=== PATIENT | female | born 1980 | race Caucasian/White ===

== ENCOUNTER 2024-08-29 16:33 | Emergency (ER) | payer MEDICARE, MEDICAID, SELFPAY ==
--- NOTE | 2024-08-29 16:36 | XR_ITS ---
Examination: AP chest single view Technique one AP portable upright chest single view Standing time: August 29, 2024 1709 hours INDICATIONS: Chest pain shortness of breath in 2 days ago FINDINGS: Early pneumonia left base Normal heart size Right lung clear IMPRESSION: Early pneumonia left base, obscuring detail lateral left hemidiaphragm
--- NOTE | 2024-08-29 16:36 | EKG_ITS ---
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
--- NOTE | 2024-08-29 16:37 | PD.EDADULT ---
ED General RME/HPI General Chief complaint: Chest Pain Stated complaint: CHEST PAIN Time Seen by Provider: 08/29/24 16:36 Arrival date/time: 08/29/24 16:33 CC: Chest pain, nausea, diarrhea HPI ongoing for the past 4 days. Patient called 911 secondary to chest pain EMS reports stable vital signs her chest pain was a 10 out of 10 upon arrival after 2 baby aspirin oral and Nitropaste the patient's pain is decreased to a 5. Patient is awake alert oriented. Patient states she was started on Flagyl today for a STD , however the patient states she was never had a pelvic examination and/or testing. Patient's medications include the following Gabapentin doxepin tramazoline bupropion Suboxone and Flagyl. Related Data Home Medications ?Medication ?Instructions ?Recorded ?Confirmed aripiprazole 10 mg tablet 10 mg PO .ARNEL 08/29/24 08/29/24 buprenorphine 12 mg-naloxone 3 mg 1 film buccal Q24H 08/29/24 08/29/24 sublingual film bupropion HCl 200 mg tablet,12 hr 200 mg PO Q12H 08/29/24 08/29/24 sustained-release doxepin 25 mg capsule 25 mg PO .at bed 08/29/24 08/29/24 duloxetine 30 mg capsule,delayed 30 mg PO DAILY 08/29/24 08/29/24 release gabapentin 400 mg capsule 400 mg PO Q12H 08/29/24 08/29/24 metronidazole 500 mg tablet 500 mg PO BID 08/29/24 08/29/24 tizanidine 4 mg tablet 4 mg PO .at bed 08/29/24 08/29/24 Previous Rx's ?Medication ?Instructions ?Recorded azithromycin 500 mg tablet See Rx Instructions PO .COMPLEX #3 08/29/24 (Zithromax TRI-RANCHO) tabs ondansetron 4 mg disintegrating 4 mg PO Q8H #10 tabs 08/29/24 tablet Allergies Allergy/AdvReac Type Severity Reaction Status Date / Time adhesive tape Allergy Verified 08/29/24 18:41 Review of Systems Review of Systems Narrative Review of Systems: GEN: No fever, no chills, no weight loss EYES: No discharge, no visual changes, no pain HEENT: No ear pain, no congestion, no sore throat PULM: No shortness of breath, no cough, no congestion CV: + chest pain, no dyspnea on exertion, no palpitations GI: + nausea, no vomiting, + diarrhea, no pain, no constipation : No frequency, no urgency, no dysuria MUSC/SKEL: No joint pain, no back pain SKIN: No rash PSYCH: No hallucinations, no depression HEME/LYMPH: No easy bleeding or bruising tendencies NEURO: No weakness, no headache Past Medical History Past Medical History RESPIRATORY: Positive Chronic Obstructive Pulmonary Disease (COPD) ENDOCRINE: Positive Hypoglycemia HEMATOLOGIC: Positive Anemia Family History FAMILY HISTORY: Positive Family Cancer (PT'S AUNT BREAST CANCER) Surgical History SURGICAL: Positive Tubal Ligation Social History SMOKING STATUS: Former smoker ED Exam Narrative Physical exam: [General: Obese, anxious, but not in any acute distress Head normocephalic HEENT: Eyes pupils are PERRLA EOMs are intact mouth pink moist membranes uvula is midline swallow symmetrical all other subsystems of HEENT are within acceptable limits Neck is supple nontender Chest equal chest rise nontender to palpation Respiratory: Clear to auscultation no wheezes crackles or rubs CV: Rate rhythm is regular no murmurs rubs or clicks Abdomen is distended secondary to body habitus soft nontender no masses positive bowel sounds all 4 quadrants Back: No CVA tenderness no spinous process tenderness from cervical spine thoracic and lumbar spine Skin: Intact no petechiae rash induration ulceration or crepitus Extremities: Moving all extremity against resistance cap refill less than 2 seconds neurosensory intact. Nonpitting edema to the dorsum of both feet Neuro: Awake alert oriented x3 Glascow coma 15 no focal deficits] Course Quality Measures none Orders Category Date Time Status EKG (ED ONLY) *Do not use* NOW Care 08/29/24 16:36 Completed EKG (ED ONLY) *Do not use* NOW Care 08/29/24 16:40 Completed EKG (ED Only) Stat Exams 08/29/24 16:36 Draft EKG (ED Only) Stat Exams 08/29/24 16:40 Stop Req XR chest 1V Stat Exams 08/29/24 16:36 Completed B-Type Natriuretic Peptide Stat Lab 08/29/24 17:23 Completed CBC Stat Lab 08/29/24 17:23 Completed Comprehensive Metabolic Panel Stat Lab 08/29/24 17:23 Completed Drug Screen,Urine Stat Lab 08/29/24 17:52 Completed LDH (Lactate Dehydrogenase) Stat Lab 08/29/24 17:23 Completed Magnesium Stat Lab 08/29/24 17:23 Completed Partial Thromboplastin Time Stat Lab 08/29/24 17:23 Completed Prothrombin Time with INR Stat Lab 08/29/24 17:23 Completed Troponin I Stat Lab 08/29/24 17:23 Completed Urinalysis Stat Lab 08/29/24 17:52 Completed Ketorolac Inj [Toradol Inj] Med 08/29/24 18:51 Discontinued 15 mg IVP X1 ONE cefTRIAXone/D5w 1gm IV premix [Rocephin/D5w 1gm IV Med 08/29/24 18:51 Discontinued premix] 1 gm in 50 ml IV X1 Vital Signs Vital signs: Vital Signs Temperature 98.2 F 08/29/24 16:47 Pulse Rate 74 08/29/24 16:47 Respiratory Rate 18 08/29/24 16:47 Blood Pressure 136/79 H 08/29/24 16:47 Pulse Oximetry (%) 96 08/29/24 16:47 Oxygen Delivery Method Room Air 08/29/24 16:47 Discharge Plan Plan Patient Disposition: HOME (Self Care) Patient condition on transfer: Stable Prescriptions/Referrals Prescriptions/Med Rec: New azithromycin [Zithromax TRI-RANCHO] 500 mg tablet See Rx Instructions .ROUTE .COMPLEX Qty: 3 0RF Rx Instructions: For 500 mg dose pack: take 500 mg once daily for 3 days ondansetron 4 mg tablet,disintegrating 4 mg PO Q8H Qty: 10 0RF No Action metronidazole 500 mg tablet 500 mg PO BID buprenorphine-naloxone 12-3 mg film 1 film BUCCAL Q24H Patient Comments: PLACE 1 STRIP UNDER THE TONGUE AND ALLOW TO DISSOLVE ONCE DAILY aripiprazole 10 mg tablet 10 mg PO .ARNEL Patient Comments: TAKE 1 TABLET BY MOUTH IN THE MORNING duloxetine 30 mg capsule,delayed release(DR/EC) 30 mg PO DAILY Patient Comments: TAKE 1 CAPSULE BY MOUTH IN THE MORNING gabapentin 400 mg capsule 400 mg PO Q12H Patient Comments: TAKE 1 CAPSULE BY MOUTH TWICE DAILY doxepin 25 mg capsule 25 mg PO .at bed Patient Comments: TAKE 1 CAPSULE BY MOUTH EVERY DAY AT BEDTIME bupropion HCl 200 mg tablet sustained-release 12 hr 200 mg PO Q12H Patient Comments: TAKE 1 TABLET BY MOUTH TWICE DAILY tizanidine 4 mg tablet 4 mg PO .at bed Patient Comments: TAKE 1 TABLET BY MOUTH AT BEDTIME NEEDED Referrals: No Primary/Family,Physician [Primary Care Provider] - In 1 week Problem List Clinical Impression: Chest pain, Pneumonia Patient/Caregiver Discharge Instructions Education Materials: ED Chest Pain, Noncardiac, ED Pneumonia (Adult) Additional Instructions: You have a very mild pneumonia take the antibiotics prescribed in addition to the antibiotics you are already taken follow-up with your primary care doctor if there is worsening of symptoms return to the primary care doctor Print Language: Tunisian Stand Alone Forms: [employer] Award Info., Work/School Release, Patient Portal Info Letter PA/CHARMAINE Supervising Physician TULIO/CHARMAINE Supervising Physician: Sujit Mccord ENP MDM Patient Acuity Low Acuity (complete MDM as needed) Clinical Information Provided by: patient and EMS Medical Records reviewed [facility] (Reviewed prior ED records from 08/18/24. Patient was seen for Encounter for monitoring Suboxone maintenance therapy.) and EMS Meds/Rx considered, not ordered describe: None EKG EKG Interpretation(s): EKG performed at 1658 shows a ventricular rate of 6 5 IL interval 183 QRS of 90 QTc of 428 this is sinus rhythm. Labs Lab(s) Interpretation(s): CBC shows no acute leukocytosis anemia thrombocytopenia Coags within acceptable limits CMP shows a chloride of 109 gap of 5 BUN of 8 ~bili of 0.2 no transaminitis no T. bili elevation Troponin is negative LDH is negative BNP is negative urine is negative for acute UTI. Imaging Imaging Interpretation(s): Chest x-ray is interpreted by the radiologist as potential base pneumonia. Note the patient has no cough, but continues to have chest pain. With a negative troponin. Medication Administration(s) Medication Administration History Discontinued Medications Ceftriaxone Sodium/Dextrose (Rocephin/D5w 1gm Iv Premix) 1 gm in 50 mls @ 100 mls/hr IV X1 ONE Stop: 08/29/24 19:20 Last Infusion: 08/29/24 20:00 Dose: Infused Documented By: Admin: 08/29/24 19:17 Dose: 100 mls/hr Documented By: SF Ketorolac Tromethamine (Ketorolac Inj 30 Mg/Ml Vial) 15 mg IVP X1 ONE Stop: 08/29/24 18:52 Last Admin: 08/29/24 19:18 Dose: 15 mg Documented By: SF See above if any
--- NOTE | 2024-08-29 16:40 | EKG_ITS ---
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
[2024-08-29 16:47] VITALS: BP 136/79; PULSE 74; RESP 18; TEMP 36.8; O2SAT 96; BMI 30.4
[2024-08-29 17:33] LABS: Basophils # (Auto) 0.1 Thou/mm3 (0.0-0.2); Basophils % (Auto) 1 % (0-2.5); Eosinophils # (Auto) 0.1 Thou/mm3 (0.0-0.5); Eosinophils % (Auto) 2 % (0-10); Hematocrit 36.5 % (36.0-46.0); Hemoglobin 12.1 g/dL (12.0-16.0); Immature Granulocytes % (Auto) 0 % (0-0); Immature Granulocytes Auto 0.02 Thou/mm3 (0.00-0.00); Lymphocytes # (Auto) 2.2 Thou/mm3 (1.0-4.8); Lymphocytes % (Auto) 28 % (10-50); Mean Corpuscular HGB Conc 33.2 g/dl (31.0-37.0); Mean Corpuscular Hemoglobin 30.3 pg (25.0-35.0); Mean Corpuscular Volume 91 fL (80-100); Monocytes # (Auto) 0.7 Thou/mm3 (0.0-0.8); Monocytes % (Auto) 9 % (0-12); Neutrophils # (Auto) 4.7 Thou/mm3 (1.8-7.7); Neutrophils % (Auto) 60 % (37-80); Nucleated Red Blood Cell % 0 /100 WBC (0); Platelet Count 253 Thou/mm3 (140-440); RDW Standard Deviation 41.5 fL (36.4-46.3); White Blood Count 7.8 Thou/mm3 (3.6-11.0)
[2024-08-29 17:55] LABS: B-Type Natriuretic Peptide 45 pg/mL (0-100); INR 0.9 (0.9-1.3); Partial Thromboplastin Time 27.6 Seconds (22.0-36.0); Prothrombin Time 10.3 Seconds (9.0-12.2)
[2024-08-29 17:57] LABS: Alanine Aminotransferase 12 U/L (10-49); Albumin, Serum 3.9 gm/dL (3.5-5.0); Albumin/Globulin Ratio 1.7 (1.2-2.2); Alkaline Phosphatase 84 U/L (46-116); Anion Gap 5 (7-16); Aspartate Amino Transferase 24 U/L (0-34); BUN/Creatinine Ratio 8 Ratio (12-20); Bilirubin,Total 0.2 mg/dL (0.3-1.2); Blood Urea Nitrogen 8 mg/dL (9-23); Calcium 8.8 mg/dL (8.3-10.6); Calcium (Corrected) 8.9 mg/dL (8.5-10.1); Carbon Dioxide 28.5 mMol/L (20.0-31.0); Chloride 109 mMol/L (98-107); Estimated Creatinine Clearance 84.6 mL/min (>60); Globulin 2.3 gm/dL (2.3-3.5); Glucose 105 mg/dL (74-106); LDH (Lactate Dehydrogenase) 204 U/L (120-246); Magnesium 1.8 mg/dL (1.6-2.6); Osmolality,Calculated 281 (275-295); Potassium 3.7 mMol/L (3.4-5.1); Sodium 142 mMol/L (136-145); Total Protein 6.2 gm/dL (5.7-8.2); Troponin I < 0.002 ng/mL (0.0-0.045); eGFR > 60 See Note
[2024-08-29 18:09] LABS: Collection Type, Urine Clean Catch
[2024-08-29 18:10] VITALS: BP 108/66; PULSE 72; RESP 16; TEMP 36.7; O2SAT 96
[2024-08-29 18:19] LABS: Bilirubin,Urine Negative (Negative); Blood,Urine Negative (Negative); Clarity,Urine Clear (Clear/Hazy); Color,Urine Yellow (Lt Yel-Yel); Glucose, Urine Negative (Negative); Ketones,Urine Negative (Negative); Leukocyte Esterase,Urine Positive (Negative); Nitrite,Urine Negative (Negative); Protein,Urine Trace (Neg - Trace); RBC,Urine 22 /hpf (0-3); Specific Gravity,Urine 1.024 (1.001-1.035); Squamous Epithelial Cell,Urine 3 /hpf (0-5); WBC,Urine 30 /hpf (0-5)
[2024-08-29] MEDS: cefTRIAXone/D5w 1gm IV premix 1 GM/50 ML BAG IV (19:17)
[2024-08-29] MEDS: KETOROLAC INJ 30 MG/ML VIAL 15 MG IVP (19:18)
[2024-08-29 19:39] LABS: Amphetamine/Methamp Scrn,U Negative (Negative); Barbiturate Screen,Urine Negative (Negative); Benzodiazepines Screen,Urine Negative (Negative); Benzoylecgonine Screen, Ur Negative (Negative); Fentanyl Screen,Urine Negative (Negative); Opiate Screen,Urine Negative (Negative); THC Screen,Urine Negative (Negative)
--- NOTE | 2024-08-30 08:30 | PC.NURSE ---
PHILIP NOTED AT [facility]ES [facility]. PER NON LINEAR EDITOR CHARGE JOHNNA. STATES HE ATTEMPTED TO CALL PT WITH NO ANSWER. I CALLED AGAIN WITH NO ANSWER. MESSAGE LEFT AT THIS TIME.
== END 2024-08-29 20:28 | disposition home or self-care (01) ==
PROVIDERS: Registered Nurse General Practice; Emergency Provider Emergency Medicine
DX: J44.0 Chronic obstructive pulmonary disease with (acute) lower respiratory infection (principal); J18.9 Pneumonia, unspecified organism; R94.31 Abnormal electrocardiogram [ECG] [EKG]; Z87.891 Personal history of nicotine dependence
CPT/HCPCS: 36415; 71045; 80053; 80307; 81001; 83615; 83735; 83880; 84484; 85025; 85610; 85730; 93005; 96365; 96375; 99284; J0696; J1885

== ENCOUNTER 2025-02-15 09:39 | Emergency (ER) | payer MEDICARE, MEDICAID, SELFPAY ==
[2025-02-15 10:02] VITALS: BP 110/77; PULSE 99; RESP 19; TEMP 36.5; O2SAT 99; BMI 29.5
--- NOTE | 2025-02-15 10:08 | EKG_ITS ---
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
--- NOTE | 2025-02-15 10:08 | XR_ITS ---
EXAMINATION: PA lateral chest 2 views TECHNIQUE: Upright PA and lateral chest 2 views Date and time: February 15, 2025, 11:49 a.m., comparison August 29, 2024 INDICATIONS: Vomiting diarrhea chest pain beginning 3 days ago. FINDINGS: Normal heart size Lungs are clear. Osseous structures are intact IMPRESSION: No active disease
--- NOTE | 2025-02-15 10:08 | PD.EDRME ---
Rapid Medical Screening Exam RME Arrival date/time: 02/15/25 09:39 44-year-old female presents to the emergency room today for complaints of generalized bodyaches, vomiting, headache, chest pain ongoing for the last 2 to 3 days Chief Complaint: Flu Like Symptoms Vital signs: Vital Signs Temperature 97.7 F 02/15/25 10:02 Pulse Rate 99 02/15/25 10:02 Respiratory Rate 19 02/15/25 10:02 Blood Pressure 110/77 02/15/25 10:02 Pulse Oximetry (%) 99 02/15/25 10:02 Oxygen Delivery Method Room Air 02/15/25 10:02
[2025-02-15 10:32] LABS: Basophils # (Auto) 0.2 Thou/mm3 (0.0-0.2); Basophils % (Auto) 1 % (0-2.5); Eosinophils # (Auto) 0.1 Thou/mm3 (0.0-0.5); Eosinophils % (Auto) 0 % (0-10); Hematocrit 46.7 % (36.0-46.0); Hemoglobin 16.4 g/dL (12.0-16.0); Immature Granulocytes Auto 0.05 Thou/mm3 (0.00-0.00); Lymphocytes # (Auto) 3.3 Thou/mm3 (1.0-4.8); Lymphocytes % (Auto) 24 % (10-50); Mean Corpuscular HGB Conc 35.1 g/dl (31.0-37.0); Mean Corpuscular Hemoglobin 30.3 pg (25.0-35.0); Mean Corpuscular Volume 86 fL (80-100); Monocytes # (Auto) 0.7 Thou/mm3 (0.0-0.8); Monocytes % (Auto) 5 % (0-12); Neutrophils # (Auto) 9.7 Thou/mm3 (1.8-7.7); Neutrophils % (Auto) 69 % (37-80); Nucleated Red Blood Cell # 0.00 Thou/mm3 (0.00-0.00); Nucleated Red Blood Cell % 0 /100 WBC (0); Platelet Count 343 Thou/mm3 (140-440); RDW Standard Deviation 38.5 fL (36.4-46.3); Red Blood Count 5.42 Miln/mm3 (4.00-5.20); White Blood Count 13.9 Thou/mm3 (3.6-11.0)
[2025-02-15 10:37] LABS: Collection Type, Urine Clean Catch
[2025-02-15 10:40] LABS: HCG Qualitative,Urine Negative
[2025-02-15 10:43] LABS: Bilirubin,Urine Negative (Negative); Blood,Urine 2+ (Negative); Color,Urine Yellow (Lt Yel-Yel); Culture Indicated,Urine Not Indicated; Glucose, Urine Negative (Negative); Hyaline Casts,Urine < 1 /hpf (0-1); Ketones,Urine Negative (Negative); Leukocyte Esterase,Urine Positive (Negative); Nitrite,Urine Negative (Negative); PH,Urine 6.0 (5.0-7.0); Protein,Urine Trace (Neg - Trace); RBC,Urine 23 /hpf (0-3); Specific Gravity,Urine 1.028 (1.001-1.035); Squamous Epithelial Cell,Urine 13 /hpf (0-5); Urobilinogen,Urine 2.0 mg/dL (0.0-1.0); WBC,Urine 3 /hpf (0-5)
[2025-02-15 10:54] LABS: Amphetamine/Methamp Scrn,U Positive (Negative); Barbiturate Screen,Urine Negative (Negative); Benzodiazepines Screen,Urine Negative (Negative); Benzoylecgonine Screen, Ur Negative (Negative); Fentanyl Screen,Urine Negative (Negative); Opiate Screen,Urine Negative (Negative); THC Screen,Urine Negative (Negative)
[2025-02-15 11:12] LABS: Clarity,Urine Hazy (Clear/Hazy)
[2025-02-15 11:35] LABS: Alanine Aminotransferase 100 U/L (10-49); Albumin, Serum 5.0 gm/dL (3.5-5.0); Albumin/Globulin Ratio 1.9 (1.2-2.2); Alkaline Phosphatase 93 U/L (46-116); Anion Gap 11 (7-16); Aspartate Amino Transferase 42 U/L (0-34); BUN/Creatinine Ratio 7 Ratio (12-20); Bilirubin,Total 0.5 mg/dL (0.3-1.2); Blood Urea Nitrogen 6 mg/dL (9-23); Calcium 9.8 mg/dL (8.3-10.6); Calcium (Corrected) 9.8 mg/dL (8.5-10.1); Carbon Dioxide 24.1 mMol/L (20.0-31.0); Chloride 107 mMol/L (98-107); Creatinine (Component) 0.9 mg/dL (0.6-1.3); Estimated Creatinine Clearance 91.7 mL/min (>60); Globulin 2.7 gm/dL (2.3-3.5); Glucose 93 mg/dL (74-106); Lipase 48 U/L (12-53); Osmolality,Calculated 280 (275-295); Potassium 3.5 mMol/L (3.4-5.1); Sodium 142 mMol/L (136-145); Total Protein 7.7 gm/dL (5.7-8.2); Troponin I < 0.002 ng/mL (0.0-0.045); eGFR > 60 See Note
[2025-02-15 12:14] VITALS: BP 114/81; PULSE 80; RESP 17; TEMP 36.6; O2SAT 100
--- NOTE | 2025-02-15 12:36 | PD.EDADULT ---
ED General RME/HPI General Chief complaint: Flu Like Symptoms Stated complaint: N/V DIARRHEA X3 DAYS, FEVER CHILLS BODY ACHES Time Seen by Provider: 02/15/25 12:29 Arrival date/time: 02/15/25 09:39 CC: Nausea vomiting diarrhea HPI ongoing for the past 2 days last vomiting was this morning last diarrhea was this morning approximately 6 hours ago patient has only taken Pepto-Bismol without relief now the patient has abdominal pain. Patient states she is unable to keep anything down. Patient is awake alert oriented in mild discomfort not in acute distress. RME / HPI RME / HPI narrative: 02/15/25 09:39 44-year-old female presents to the emergency room today for complaints of generalized bodyaches, vomiting, headache, chest pain ongoing for the last 2 to 3 days Related Data Home Medications ?Medication ?Instructions ?Recorded ?Confirmed aripiprazole 10 mg tablet 10 mg PO .ARNEL 08/29/24 08/29/24 buprenorphine 12 mg-naloxone 3 mg 1 film buccal Q24H 08/29/24 08/29/24 sublingual film bupropion HCl 200 mg tablet,12 hr 200 mg PO Q12H 08/29/24 08/29/24 sustained-release doxepin 25 mg capsule 25 mg PO .at bed 08/29/24 08/29/24 duloxetine 30 mg capsule,delayed 30 mg PO DAILY 08/29/24 08/29/24 release gabapentin 400 mg capsule 400 mg PO Q12H 08/29/24 08/29/24 metronidazole 500 mg tablet 500 mg PO BID 08/29/24 08/29/24 tizanidine 4 mg tablet 4 mg PO .at bed 08/29/24 08/29/24 Previous Rx's ?Medication ?Instructions ?Recorded azithromycin 500 mg tablet See Rx Instructions PO .COMPLEX #3 08/29/24 (Zithromax TRI-RANCHO) tabs ondansetron 4 mg disintegrating 4 mg PO Q8H #10 tabs 08/29/24 tablet ondansetron 4 mg disintegrating 4 mg PO Q8H #10 tabs 02/15/25 tablet Allergies Allergy/AdvReac Type Severity Reaction Status Date / Time adhesive tape Allergy Verified 02/15/25 09:42 Review of Systems Review of Systems Narrative Review of Systems: GEN: No fever, no chills, no weight loss EYES: No discharge, no visual changes, no pain HEENT: No ear pain, no congestion, no sore throat PULM: No shortness of breath, no cough, no congestion CV: No chest pain, no dyspnea on exertion, no palpitations GI: No nausea, no vomiting, no diarrhea, + pain, no constipation : No frequency, no urgency, no dysuria MUSC/SKEL: No joint pain, no back pain SKIN: No rash PSYCH: No hallucinations, no depression HEME/LYMPH: No easy bleeding or bruising tendencies NEURO: No weakness, no headache Past Medical History Past Medical History CARDIAC: Negative Congestive Heart Failure RESPIRATORY: Positive Chronic Obstructive Pulmonary Disease (COPD) ENDOCRINE: Positive Hypoglycemia; Negative Diabetes Mellitus Type 1 or Diabetes Mellitus Type 2 HEMATOLOGIC: Positive Anemia Family History FAMILY HISTORY: Positive Family Cancer (PT'S AUNT BREAST CANCER) Surgical History SURGICAL: Positive Tubal Ligation Social History SMOKING STATUS: Light (< 1 pack/day) ED Exam Narrative Physical exam: [General: In mild discomfort but not in any acute distress Head normocephalic HEENT: Within acceptable limits Neck is supple nontender Chest equal chest rise nontender to palpation Respiratory: Clear to auscultation no wheezes crackles or rubs CV: Rate rhythm is regular no murmurs rubs or clicks Abdomen is soft diffusely tender throughout, no masses positive bowel sounds all 4 quadrants Back: No CVA tenderness no spinous process tenderness from cervical spine thoracic and lumbar spine Skin: Intact no petechiae rash induration ulceration or crepitus Extremities: Moving all extremity against resistance cap refill less than 2 seconds neurosensory intact Neuro: Awake alert oriented x3 Glascow coma 15 no focal deficits] Course Course Course Narrative: Patient has a low white count, but is not in any acute distress. I suspect this is secondary to methamphetamine abuse. The patient is not in acute dehydration, will give the patient p.o. fluids and p.o. antinausea medicine. Quality Measures none Orders Category Date Time Status Bedside COVID-19 Antigen Test NOW Care 02/15/25 10:08 Completed EKG (ED ONLY) *Do not use* NOW Care 02/15/25 10:08 Completed Fluid challenge administration NOW Care 02/15/25 12:40 Completed EKG (ED Only) Stat Exams 02/15/25 10:08 Draft XR chest 2V Stat Exams 02/15/25 10:08 Completed CBC Stat Lab 02/15/25 10:23 Completed Comprehensive Metabolic Panel Stat Lab 02/15/25 11:07 Completed Drug Screen,Urine Stat Lab 02/15/25 10:29 Completed HCG Qualitative,Urine Stat Lab 02/15/25 10:29 Completed Lipase Stat Lab 02/15/25 11:07 Completed Troponin I Stat Lab 02/15/25 11:07 Completed UA, C/S IF [Urinalysis, C/S if Indicated] Stat Lab 02/15/25 10:29 Completed Ondansetron Odt [Zofran Odt] Med 02/15/25 12:40 Discontinued 4 mg PO X1 ONE Vital Signs Vital signs: Vital Signs Temperature 97.7 F 02/15/25 10:02 Pulse Rate 99 02/15/25 10:02 Respiratory Rate 19 02/15/25 10:02 Blood Pressure 110/77 02/15/25 10:02 Pulse Oximetry (%) 99 02/15/25 10:02 Oxygen Delivery Method Room Air 02/15/25 10:02 Discharge Plan Plan Patient Disposition: HOME (Self Care) Patient condition on transfer: Stable Prescriptions/Referrals Prescriptions/Med Rec: New ondansetron 4 mg tablet,disintegrating 4 mg PO Q8H Qty: 10 0RF No Action metronidazole 500 mg tablet 500 mg PO BID buprenorphine-naloxone 12-3 mg film 1 film BUCCAL Q24H Patient Comments: PLACE 1 STRIP UNDER THE TONGUE AND ALLOW TO DISSOLVE ONCE DAILY aripiprazole 10 mg tablet 10 mg PO .ARNEL Patient Comments: TAKE 1 TABLET BY MOUTH IN THE MORNING duloxetine 30 mg capsule,delayed release(DR/EC) 30 mg PO DAILY Patient Comments: TAKE 1 CAPSULE BY MOUTH IN THE MORNING gabapentin 400 mg capsule 400 mg PO Q12H Patient Comments: TAKE 1 CAPSULE BY MOUTH TWICE DAILY doxepin 25 mg capsule 25 mg PO .at bed Patient Comments: TAKE 1 CAPSULE BY MOUTH EVERY DAY AT BEDTIME bupropion HCl 200 mg tablet sustained-release 12 hr 200 mg PO Q12H Patient Comments: TAKE 1 TABLET BY MOUTH TWICE DAILY tizanidine 4 mg tablet 4 mg PO .at bed Patient Comments: TAKE 1 TABLET BY MOUTH AT BEDTIME NEEDED azithromycin [Zithromax TRI-RANCHO] 500 mg tablet See Rx Instructions .ROUTE .COMPLEX Qty: 3 0RF Rx Instructions: For 500 mg dose pack: take 500 mg once daily for 3 days ondansetron 4 mg tablet,disintegrating 4 mg PO Q8H Qty: 10 0RF Referrals: Loco Ozuna MD [Primary Care Provider, Family Practice] - In 1 week Problem List Clinical Impression: Nausea & vomiting Patient/Caregiver Discharge Instructions Education Materials: ED Vomiting and Diarrhea ... Additional Instructions: Stop using methamphetamines soft foods that are not spicy or greasy for the next couple of days. Drink plenty of fluids. Print Language: Georgian Stand Alone Forms: Rebeca Award Info., Work/School Release, Patient Portal Info Letter PA/DRY CHARGE PROCESS ATTENDANT Supervising Physician PA/DRY CHARGE PROCESS ATTENDANT Supervising Physician: Sujit Mccord ENP [facility] Clinical Information Provided by: patient Medical Records reviewed [facility] Meds/Rx considered, not ordered None Labs/Rad/Tests considered, not ordered None Chronic Illness/Social Conditions which may negatively complicate care or outcome(s)-explain: Mental health Explain: Methamphetamine abuse EKG EKG not done Labs Labs: interpreted by pr Lab(s) Interpretation(s): CBC shows a mild leukocytosis of 13.9 H&H 16.4 and 46.7 respectively. No thrombocytopenia CMP shows no acute electrolyte imbalances renal impairment, elevated T. bili, AST ALT are mildly elevated alk phos at 93 Troponin is undetectable. Lipase is 48. Urine is 2+ blood 23 RBCs 13 squamous epithelial no bacteria this is a contaminated specimen. UDS is positive for methamphetamines. Medication Administration(s) Medication Administration History Discontinued Medications Ondansetron HCl (Ondansetron Odt 4 Mg Tabrap) 4 mg PO X1 ONE; Protocol Stop: 02/15/25 12:41 Last Admin: 02/15/25 12:55 Dose: 4 mg Documented By: ORAL
[2025-02-15] MEDS: ONDANSETRON ODT 4 MG TABRAP PO (12:55)
[2025-02-15 14:31] VITALS: BP 120/74; PULSE 75; RESP 18; TEMP 36.5; O2SAT 98
== END 2025-02-15 15:15 | disposition home or self-care (01) ==
PROVIDERS: Nurse Practitioner Primary Care; Emergency Provider Family Medicine; PCP Family Medicine
DX: R11.2 Nausea with vomiting, unspecified (principal)
CPT/HCPCS: 36415; 71046; 80053; 80307; 81001; 81025; 83690; 84484; 85025; 87811; 93005; 99283; Q0162